=== PATIENT | female | born 1950 ===

== ENCOUNTER 2017-12-15 11:52 | Day surgery (SDC) | payer MEDICARE, BC ==
[2017-12-05 12:34] VITALS: BMI 22.0
[2017-12-15 12:25] LABS: BASO # 0.02 K/mm3 (0.0-2.0); BASO % 0.2 % (0.0-3.0); EOS # 0.1 (0.0-0.7); EOS % 0.8 % (1.5-5.0); GRAN # 5.68 (1.4-6.5); GRAN % 54.8 % (50.0-68.0); HEMOGLOBIN 13.4 g/dL (12.0-16.0); LYMPH # 3.7 (1.2-3.4); LYMPH % 35.8 % (22.0-35.0); MEAN CORPUSCULAR HEMOGLOBIN 28.9 pg (25.0-35.0); MEAN CORPUSCULAR HGB CONC 33.3 g/dl (31.0-37.0); MEAN PLATELET VOLUME 9.7 fl (7.0-11.0); MONO # 0.9 (0.1-0.6); MONO % 8.4 % (1.0-6.0); RBC 4.63 10^6/uL (3.5-6.1); RED CELL DISTRIBUTION WIDTH 12.9 % (11.5-14.5); WHITE BLOOD COUNT 10.4 10^3/ul (4.5-11.0)
[2017-12-15 12:34] LABS: BLOOD UREA NITROGEN 18 mg/dL (7-21); CALCIUM 10.2 mg/dL (8.4-10.5); GFR NON-AFRICAN AMERICAN > 60
[2017-12-15 12:37] LABS: INR 0.93; PARTIAL THROMBOPLASTIN TIME 30.9 Seconds (25.1-36.5); PROTHROMBIN TIME 10.7 SECONDS (9.4-12.5)
[2017-12-15] MEDS ORDERED: Lidocaine 1% Inj (20ml) ONE (14:09)
[2017-12-15] MEDS ORDERED: Midazolam 2 MG/2 ML VIAL ONE (14:10)
[2017-12-15] MEDS ORDERED: Oxycodone/Acetaminophen 5/325 mg Tab PO PRN (15:02)
[2017-12-15] MEDS ORDERED: Sodium Chloride 0.45% 1,000 ML IV SCH (15:15)
[2017-12-15 15:42] VITALS: RESP 20; TEMP 98.1
[2017-12-15 16:07] VITALS: BP 134/68; PULSE 85; O2SAT 97
--- NOTE | 2017-12-15 18:06 | US ---
PROCEDURE: Ultrasound-guided left thyroid fine needle aspiration biopsy. CLINICAL HISTORY: Solitary large 4 cm left thyroid nodule. Evaluate for malignancy. PHYSICIAN(S): Noah Sloan M.D. TECHNIQUE: The relative risks and indications for the procedure were explained to the patient and consent obtained. The patient was placed supine on the stretcher with the neck extended and preliminary sonography of the thyroid performed. This reveal 4 cm heterogeneous nodule with cystic areas.. The remainder of the thyroid parenchyma is fairly homogeneous in echotexture. The neck was prepped and draped in the usual sterile fashion. Conscious sedation and monitoring were provided throughout the procedure by a nurse. 1% Xylocaine was used to anesthetize the skin and soft tissues at the access site. Three passes with a 22-gauge needle were performed under ultrasound guidance for fine needle aspiration of the 4 cm nodule in the left thyroid. The slides were reviewed by pathology and deemed adequate. The patient tolerated the procedure well. IMPRESSION: 1. Ultrasound guided fine needle aspiration of a 4 cm dominantnodule in the left thyroid.
== END 2017-12-15 16:15 | disposition home or self-care (01) ==
LOC: SDS 11:52
PROVIDERS: ATTEND Radiology Vascular & Interventional Radiology
DX: E04.1 Nontoxic single thyroid nodule (principal); E11.9 Type 2 diabetes mellitus without complications
CPT/HCPCS: 10022; 36415; 76942; 80048; 85025; 85610; 85730; 88173; 88305; 99152; 99153; J2250; J2405; J3010; J7030